=== PATIENT | male | born 1990 | race African-American/Black ===

== ENCOUNTER 2019-08-24 09:24 | Emergency (ER) | payer OTHER, SELFPAY ==
[2019-08-24 09:25] VITALS: BP 132/73; PULSE 86; RESP 14; TEMP 37.4; O2SAT 100; BMI 23.6
--- NOTE | 2019-08-24 09:50 | ED.VISSUMM ---
- ER Visit Summary Date of Service: 08/24/19 Chief Complaint: Abscess and pinkeye History of Present Illness: The patient is a [address] Patel. He reports that he has a swollen painful area on his left eye that began 2 days ago. Reports a sharp pain is 10-10 with walking or touching it. Is it a 10 respirators not taken anything for pain. Denies any constitutional symptoms. No fever, chills, nausea, or vomiting. Patient reports that 2 days ago he woke up and his left eye was red and matted shut. He was seen in urgent care and was placed on polymyxin drops and that this is improving. However, he reports that he wants a second opinion. Physical Examination: Vitals: Stable. Afebrile. General: Well-nourished and well-developed. Head: Normocephalic atraumatic. Eyes: Mild conjunctival injection on the left. Extraocular motions are intact without pain. There is no matting at this time. Neck: Supple, no lymphadenopathy. No JVD. Nontender. Cardiovascular: Regular rate and rhythm. No murmurs. Respiratory: No respiratory distress. Clear to auscultation bilaterally. Abdominal: Soft, nontender, nondistended, normal bowel sounds. No guarding, rebound, or peritoneal signs. Back: Nontender. Extremities: Lateral left thigh there is a 2 cm indurated area with no appreciable fluctuance. There is spontaneous drainage of purulent material from this., no edema. Skin: Normal color, no rash. Neurologic: Alert and oriented ?3. Cranial nerves II through XII are intact. Normal strength and sensation. Psych: Normal affect. Emergency Department Course and Treatment: I had a prolonged discussion with the patient about treatment options. At this time with it draining spontaneously I do not know that there is much to be gained from an incision and drainage. He does not want this done if he can avoid it. He was given doxycycline and a dressing was placed. Treatment Plan: Patient will be discharged with doxycycline, Bactroban, naproxen, and 10 [place]. Instructed to follow-up with Dr. Patel or return to emergency department in 2 days if this is not improving. He does understand that he may require an incision and drainage at that time. Disposition: To home in improved and stable condition. Impression: 1. Abscess left leg with spontaneous drainage. 2. Conjunctivitis on left. This note was generated with Pythian dictation software. It may contain incorrect words, spelling, and punctuation that were not noted in review of the chart prior to signing ED Disposition - Plan for ED Patient: Instructions: ABSCESS, Antiobiotic Treatment Only Prescriptions: Mupirocin [Bactroban] 1 applic TOPICAL TID #1 tube Prescription Printed Doxycycline 100 mg PO BID #20 cap Prescription Printed Naproxen [Naprosyn] 500 mg PO BID #14 tab Prescription Printed Hydrocodone Bitart/Apap 5-325 [[place] 5MG-325MG] 1 tab PO Q4H PRN PRN 2 Days #10 tab PRN Reason: Pain Prescription Printed Referrals: Main Patel DO [Primary Care Provider] - 2 Days for wound check
[2019-08-24] MEDS: HYDROcodone Bitartrate/Apap 5/325 Tablet PO (10:03)
[2019-08-24] MEDS: Doxycycline 100 MG CAPSULE PO (10:03)
[2019-08-24] MEDS: Naproxen 250 MG Tablet 500 MG PO (10:03)
== END 2019-08-24 10:10 | disposition home or self-care (01) ==
LOC: ED 10:07
PROVIDERS: Emergency Provider Emergency Medicine; PCP Family Medicine
DX: L02.416 Cutaneous abscess of left lower limb (principal); H10.9 Unspecified conjunctivitis; J45.909 Unspecified asthma, uncomplicated; F17.200 Nicotine dependence, unspecified, uncomplicated
CPT/HCPCS: 99283

== ENCOUNTER 2021-08-22 19:14 | Emergency (ER) | payer OTHER, SELFPAY ==
[2021-08-22 19:15] VITALS: BP 128/63; PULSE 85; RESP 18; TEMP 36.2; O2SAT 96; BMI 23.5
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
--- NOTE | 2021-08-22 19:30 | RAD_ITS ---
STUDY: X-RAY CHEST REASON FOR EXAM: Male, 31 years old. CHEST PAIN rib pain TECHNIQUE: XR Chest 2 Views COMPARISON: None FINDINGS: There is no demonstrated pleural abnormality. Normal size heart. Normal mediastinum and violeta. Normal visualized pulmonary arteries. Normal visualized aortic arch and descending thoracic aorta. Normal visualized thoracic spine. Normal visualized ribs, clavicles, and shoulders. There is no demonstrated abnormality of the visualized soft tissue structures of the upper abdomen. RAD/Chest PA and Lateral IMPRESSION: There are no acute findings. Electronically Signed: Ric Taylor MD at 20:07 EST Reading Location ID and State: [facility] / [place] , Service support ,
[2021-08-22 20:22] VITALS: BP 129/78; PULSE 88; RESP 14; TEMP 36.9; O2SAT 98
== END 2021-08-22 20:22 | disposition home or self-care (01) ==
PROVIDERS: Emergency Provider Physician Assistant; Visit Provider Physician Assistant
DX: R07.81 Pleurodynia (principal); M54.50 Low back pain, unspecified; F17.290 Nicotine dependence, other tobacco product, uncomplicated; V89.2XXA Person injured in unspecified motor-vehicle accident, traffic, initial encounter; Y93.9 Activity, unspecified; Y92.9 Unspecified place or not applicable
CPT/HCPCS: 71046; 99282

== ENCOUNTER 2021-11-07 16:57 | Emergency (ER) | payer OTHER, SELFPAY ==
[2021-11-07 16:59] VITALS: BP 132/72; PULSE 62; RESP 15; TEMP 37; O2SAT 100
--- NOTE | 2021-11-07 17:47 | EX.ED.DYSGE1 ---
HPI History of Present Illness Chief Complaint: Suicidal Informant: patient Narrative Narrative: 31-year-old male presenting to the emergency department with depression. Patient states that he has been dealing with depression for the past 4 to 5 years. He was placed on medication about a year ago but only took for 3 to 4 weeks. He states that he has been seeing a counselor. This past week he states is been hard for him. He has some upcoming legal issues. He has been working 12-hour shifts at work. He states he does have a good support network with family and friends. Because he had some suicidal thoughts he made an appointment with his therapist. They contacted his doctor to see if they can start restart him on his medication. They recommended that he come to emergency for eval. Patient states that he is not actively suicidal or homicidal. PFSH PFSH Home Medications doxycycline monohydrate 100 mg PO BID #20 cap 08/24/19 [Rx Last Taken Unknown] mupirocin 1 applic TOPICAL TID #1 tube 08/24/19 [Rx Last Taken Unknown] naproxen 500 mg PO BID #14 tab 08/24/19 [Rx Last Taken Unknown] cyclobenzaprine 10 mg PO TID PRN #15 tablet 08/22/21 [Rx Last Taken Unknown] ibuprofen 800 mg PO Q8H #20 tab 08/22/21 [Rx Last Taken Unknown] Allergy/AdvReac Type Severity Reaction Status Date / Time No Known Allergies Allergy Verified 08/22/21 19:18 Social History (Updated 11/07/21 @ 17:[address] Cecil Craft, DO) Smoking Status: Current some day smoker tobacco type: cigars substance use type: does not use ROS ROS ED Constitutional Constitutional ED: Denies chills, fever(s) or weight loss Eyes Eyes: Denies change in vision or diplopia ENT ENT ED: Denies ear pain, rhinorrhea or sore throat Cardiovascular Cardiovascular: Denies chest pain, orthopnea, palpitations or racing heartbeat Respiratory/Chest Respiratory/Chest: Denies cough, dyspnea or orthopnea Gastrointestinal Gastrointestinal: Denies abdominal pain, diarrhea, nausea or vomiting Genitourinary Genitourinary ED: Denies dysuria, hematuria or urinary frequency Musculoskeletal Musculoskeletal: Denies arthralgias or myalgias Integumentary Denies abscess or rash Neurologic Neurologic: Denies headache(s) or weakness Psychiatric Psychiatric: Reports depression and suicidal thoughts; Denies anxiety or suicidal ideation Endocrine Endocrinology: Denies polydipsia, polyphagia or polyuria Allergic/Immunologic Allergic/Immunologic ED: Denies mouth swelling, tongue swelling or urticaria EXAM Physical Exam Const Vital Signs: 11/07/21 16:59 Temperature 98.6 F Temperature Source Temporal Pulse Rate 62 Respiratory Rate 15 Blood Pressure 132/72 H Blood Pressure Mean 92 Pulse Ox 100 Oxygen Delivery Method Room Air Positive well nourished and well developed General Appearance ED: well developed HEENT Reports normocephalic, head/scalp atraumatic, TM's clear and moist mucous membranes Negative for trauma Tympanic Membrane ED: Yes TM's clear Eyes PERRL and EOMs intact bilaterally Neck no lymphadenopathy, supple and no JVD Resp normal respiratory effort and clear to auscultation bilaterally Cardio regular rate, regular rhythm and no murmurs GI normal to inspection, nondistended, normoactive bowel sounds and non-tender Palpation: soft Back/Spine no CVA tenderness and normal ROM Extremity normal to inspection General Extremety ED: Negative for edema General Extremity: Negative for edema Neuro oriented x3 and CN's II-XII intact bilaterally Sensorium / Orientation: alert Motor Exam: strength 5/5 throughout Psych Psych Narrative: Patient does make eye contact. He speaks reserved. He demonstrates forward thinking. He denies suicidal or homicidal ideation. Mood & Affect: depressed; Negative for tearful Skin no rashes or lesions noted and no wounds MDM MDM MDM Narrative Medical decision making narrative: Patient was assessed by case management and myself. We do not feel that he is actively suicidal and that his depression does not rise to the level of requiring a pink slip. Patient does show interest in the partial hospitalization program. Patient will follow-up with his doctors return if worsening or concerns Discharge Plan Triage Chief Complaint: Suicidal ED Provider: Cecil Craft Dx/Rx/DC Orders Instructions: ED Depression Prescriptions: No Action doxycycline monohydrate 100 MG capsule 100 mg PO BID Qty: 20 RF: 0 mupirocin 1 APPLIC ointment 1 applic topical TID Qty: 1 RF: 0 naproxen 500 MG tablet 500 mg PO BID Qty: 14 RF: 0 ibuprofen 800 mg tablet 800 mg PO Q8H Qty: 20 RF: 0 cyclobenzaprine 10 mg tablet 10 mg PO TID PRN (Reason: Muscle Spasm) Qty: 15 RF: 0 Primary Care Provider: Mark Marcus Referrals: Care Physician,No Primary [NON-STAFF] - Activity Restrictions/Additional Instructions: Please follow-up with your doctors as scheduled Disposition Disposition: Home, Self Care
[2021-11-07 18:27] VITALS: RESP 16
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
== END 2021-11-07 18:27 | disposition home or self-care (01) ==
LOC: ED 18:10
PROVIDERS: Emergency Provider Emergency Medicine; PCP Family Medicine; Visit Provider Emergency Medicine
DX: F32.A Depression, unspecified (principal); F17.290 Nicotine dependence, other tobacco product, uncomplicated; R45.851 Suicidal ideations; Z79.899 Other long term (current) drug therapy
CPT/HCPCS: 99284

== ENCOUNTER 2021-12-09 08:00 | Outpatient (RCR) | payer OTHER, SELFPAY ==
--- NOTE | 2021-12-09 09:56 | BH.COMM ---
Communication Note - Communication with Client Communication Note: Pt completed initial paperwork and completed the [place] Suicide Screening. Pt screens at low risk. Pt admits to having fleeting SI with thoughts of cutting himself with a razor within the last month, but he denied any intent. Pt denies intent ever and denies any history of suicide attempts. No SI or thoughts of today. No access to weapons. Case discussed with Dr. Berkowitz with verbal order to admit to IOP with dx of MDD(F33.2).
--- NOTE | 2021-12-09 10:10 | BH.SGPN.GN ---
Behaviors/Verbalizations/Mental Status: []Eye contact is good. Motor activity is appropriate. Appearance is casual and grooming tended to. Speech is Appropriate. Mood is anxious and dysthymic. Affect is congruent. Thoughts are linear and logical. No evidence of psychosis Client Response/Progress/Benefit: []Pt receptive of session, actively engaged throughout AEB taking notes and providing input and examples to discussion. Appeared to connect with group topic of cognitive distortions and the impact of thought patterns on mental health, coping behaviors, and relationships. Reflected that pt personally tends to struggle with distortions of fortune telling, mind-reading, and disqualifying the positives. Pt reports his thoughts when he wakes up often dictate how his day will go, which can lead to anger or avoidance. Pt appeared to benefit from gaining insight on distorted thinking patterns and how this impacts overall mental health. Will continue IOP tx to prevent decompensation, improve daily functioning, and gain healthy emotional regulation skills. Narrative Note: []
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
--- NOTE | 2021-12-11 10:13 | BH.SGPN.GN ---
Behaviors/Verbalizations/Mental Status: []Eye contact is good. Motor activity is appropriate. Appearance is casual. Speech is Appropriate. Mood is depressed and anxious. Affect is congruent. Thoughts are linear and logical. No evidence of psychosis. Client Response/Progress/Benefit: []Pt connected with topic of Anxiety and participated throughout, providing input and examples. Attentive during psychoeducation on different anxiety disorders and participated throughout interactive discussion defining anxiety and identifying cognitive and physiological symptoms of anxiety. Pt stated ?I can relate to avoidance with anxiety?. Common cognitive symptoms identified by group included: ?what if thoughts?, ?fear of failure?, and predicting the future type thoughts. Physiological symptoms reported by patient included: ?if I don?t cry then I get really irritable?, goose bumps, and restlessness. Benefited from increased awareness and insight on anxiety and its impact. Plan is to continue in IOP to improve mood stability, increase consistency of healthy coping, and prevent decompensation. Narrative Note: []
[2021-12-11 10:26] VITALS: BP 128/84; PULSE 65
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
--- NOTE | 2021-12-11 12:17 | BH.DR.ITP ---
Initial Treatment Plan Patient Information Visit Information: ADMISSION DATE: EXPECTED LOS: 4-6 weeks Problems/Symptoms Problem #1:: Depression Symptom:: Had an, decreased motivation, anhedonia, hopelessness, guilt, biological disruption of appetite, recent passive thoughts of and recent passive, fleeting suicidal ideation Problem #2:: Anxiety Symptom:: Worry, ruminations, panic attacks
--- NOTE | 2021-12-12 09:00 | BH.SGPN.GN ---
Behaviors/Verbalizations/Mental Status: []Pt alert and oriented, casually dressed and groomed. Eye contact good. Motor activity appropriate. Speech within normal limits. Affect congruent, mood agitated and irritable. Thoughts linear, logical, no signs of hallucinations or delusions. Reviewed pt?s symptom tracker, no risk for suicidal ideation, plan, or intent as of 12/12/21 Client Response/Progress/Benefit: []Pt responded well to session, offering supportive feedback. Pt reports feeling stressed this morning as pt did not get good sleep last night and he does not have a chance to rest today until the evening after work. Pt shared he used healthy coping skills yesterday through using opposite action to go for a walk when he was anxious. Pt reported this helped pt not have a panic attack. Pt also used opposite action this morning as pt wanted to cancel IOP and call off work, but I knew that would only make me feel worse. Pt appeared to benefit from group feedback and reflecting on his use of skills. Will continue IOP tx to prevent decompensation, gain healthy coping skills, and improve mood stability. Narrative Note: []
--- NOTE | 2021-12-13 10:15 | BH.SGPN.GN ---
Behaviors/Verbalizations/Mental Status: []Pt alert and oriented, casually dressed and groomed. Eye contact good. Motor activity appropriate. Speech within normal limits. Affect congruent, mood euthymic. Thoughts linear, logical, no signs of hallucinations or delusions Client Response/Progress/Benefit: []Pt responded well to session AEB sharing and listening attentively to others. pt was engaged throughout group discussion defining fixed mindset and what it can look like. Group discussed how fixed mindset affects mental health and why we use fixed thoughts. Pt participated in experiential activity encouraging pts to find solutions to a seemingly impossible task. Pt connected with the examples of fixed thoughts given by peers. Pt shared for him fixed thinking can lead to ?putting all your eggs in one basket.? Pt appeared to benefit from increased knowledge of fixed mindset and self-awareness of personal fixed thoughts. Will continue IOP tx to prevent decompensation, gain healthy coping skills, and improve overall functioning. Narrative Note: []
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
--- NOTE | 2021-12-13 14:35 | BH.MTP_ITS ---
Master Treatment Plan - Patient Information Program Physician:: Nuris Berkowitz Primary Therapist:: Cesar Kenny - Psychiatric Diagnoses Psychiatric Diagnoses:: 1. Major depressive disorder, recurrent, severe without psychosis. 2. Generalized anxiety disorder. 3. History of methamphetamine use disorder (sober x5 years). 4. History of cocaine use disorder (sober x18 months). 5. Marijuana use disorder Diagnosis Code(s):: F33.2 - Estimated LOS Estimated LOS (in weeks):: 6 Problem/Goal #1 - Problem/Goal #1 Stated Goal:: Client will reduce depression, hopelessness, anhedonia, and fleeting suicidal thoughts due to Major Depressive Disorder through [facility] AEB by reduction on depression and suicidal ideation domains on the DSM-5 cross cutting scales. Description of Barriers: Legal issues, financial stressors, conflict with support, psychosocial stressors, hx of trauma. Functional Impact: Recently presented to [facility] ER for suicidal ideations, depression was interfering with social, familial, and work responsibilities. Isolation. Avoidance. Goal Relevant Strengths/Supports: motivated, hard-working, awareness of impact of mental health on functioning. Kids are primary support. - Objectives Objective #1 Stated Objective: Client will identify and replace 2-3 cognitive distortions that reinforce depressive symptoms, negative self-talk, and suicidal thoughts. Interventions: Through individual and group counseling will help client identify distorted, negative beliefs about self and replace with more realistic, affirmative messages. Therapist will use CBT to help client increase insight to the connection between thoughts, emotions, and behaviors. Therapist will encourage client to practice thought challenging. Discharge Criteria: Able to identify 2-3 common cognitive distortions and be able to implement strategies to minimize their impact. Target Date: 01/22/22 Review Date: 01/08/22 Objective #2 Stated Objective: Client will identify 2 triggers and 2 coping skills to use in increased times of depression and suicidal ideation. Interventions: Through individual and group counseling will teach client various coping skills to manage symptoms and give tangible resources to use to regulate emotions. Therapist will use cognitive restructuring techniques and help client gain awareness of negative thoughts that reinforce depressive cycles. Discharge Criteria: Being able to identify 2 triggers to depression and 2 ways to effectively cope with depressive thoughts. Target Date: 01/22/22 Review Date: 01/08/22 Problem/Goal #2 - Problem/Goal #2 Stated Goal:: Learn and implement coping skills that result in a reduction of anxiety and worry, and improved daily functioning AEB reduction of scores on the anxiety domain of the DSM-5 cross cutting scales. Description of Barriers: Legal issues, financial stressors, conflict with support, psychosocial stressors, hx of trauma. Functional Impact: When overwhelmed with anxiety pt often isolates or avoids others which impacts functioning at work and home. Anxiety and worry about the future also lead to increased irritability and anger outbursts. Goal Relevant Strengths/Supports: motivated, hard-working, awareness of impact of mental health on functioning. Kids are primary support. - Objectives Objective #1 Stated Objective: Client will learn and implement 2-3 calming skills to reduce overall anxiety and manage anxiety. Interventions: Through individual and group counseling will teach the client calming/relaxation skills (e.g., muscle relaxation, mindful breathing) and how to discriminate better between relaxation and tension; teach the client how to apply these skills to his/her daily life. Discharge Criteria: Able to identify at least 3 calming skills and use consistently. Target Date: 01/22/22 Review Date: 01/08/22 Objective #2 Stated Objective: Client will identify 2-3 intrusive/ruminating thoughts and learn 2-3 strategies to overcome, replace, or reduce the value of those thoughts. Interventions: Through individual and group counseling will encourage client to focus on stressors in their control and teach client distress tolerance techniques. Will also provided education and awareness of strategies to decrease ruminations and intrusive anxious thoughts. Target Date: 01/22/22 Review Date: 01/08/22
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
--- NOTE | 2021-12-14 09:00 | BH.SGPN.GN ---
Behaviors/Verbalizations/Mental Status: [] Eye contact is good. Motor activity is appropriate. Appearance is casual. Speech is Appropriate. Mood is depressed. Affect is flat. Thoughts are linear and logical. No evidence of psychosis. Reviewed daily check in sheet and no reports of suicidal ideations or intent. Client Response/Progress/Benefit: [] Pt was an active participant in group discussion. Attentive. Emotion for today is stressed. Reports that he received bad news regarding his daughter (medical issues) which he has had a hard time getting out of my head. Ruminating and fearful about her future. This led to increased feelings of anger and avoidance of his support. He is also ruminating on letting his co-workers down by coming to this program to get help. Group was able to reframe and challenge his negative automatic thoughts. One group member shared a personal story about her and her brother overcoming the same medical issue that his daughter is facing, which was beneficial. Pt did report utilizing opposite action over yesterday as he went to the park with his kids/GF. Glad he did this as we had a good time. Limited progress noted per pt. Benefited from group support, encouragement, and feedback. Will continue in IOP to prevent decompensation, increase healthy coping, and improve functioning. Narrative Note: []
--- NOTE | 2021-12-16 09:00 | BH.SGPN.GN ---
Behaviors/Verbalizations/Mental Status: []Pt alert and oriented, casually dressed and groomed. Eye contact good. Motor activity appropriate. Speech within normal limits. Affect congruent, mood euthymic. Thoughts linear, logical, no signs of hallucinations or delusions. Reviewed pt?s symptom tracker, no risk for suicidal ideation, plan, or intent as of 12/16/21 Client Response/Progress/Benefit: [] Pt responded well to session, contributing and engaged. Pt reports feeling content this morning as pt got time with positive supports over the weekend and did not isolate. However, pt got food poisoning which was painful and highly stressful, but pt feels better now. Pt shared this week he plans to practice more social self-care by going to the movies and the gym. Pt shared I always say I'm going to the gym, but I really want to. Group normalized barriers to accomplishing goals and gave pt ideas to overcome barriers. Pt will continue IOP tx to increase distress tolerance skills, improve mood stability, and reduce negative thinking. Narrative Note: []
--- NOTE | 2021-12-16 10:00 | BH.SGPN.GN ---
Behaviors/Verbalizations/Mental Status: [] Eye contact is good. Motor activity is appropriate. Appearance is casual. Speech is Appropriate. Mood is depressed. Affect is flat. Thoughts are linear and logical. No evidence of psychosis. Client Response/Progress/Benefit: [] Pt was an active participant during interactive group discussions. Attentive during psychoeducation on the six types of boundaries (physical, emotional, intellectual, sexual, time, and material) AEB note-taking. Along with peers contributed to interactive discussion on defining what a boundary is in mental health. Pt along with peers identified challenges to setting boundaries which included; fear of other's response, guilt, fear of rejection, fear of disappointing the other person, feeling like one is unworthy to set boundaries, etc. Pt along with peers identified the benefits to setting boundaries such as increased control, decreased stress, increased time for self-care, and increased confidence. Group discussed the mental health benefits to establishing boundaries at work, school, and home. Pt benefited from increased awareness and insight on the importance/benefit to setting health boundaries. Will continue in IOP to prevent decompensation, increase health coping, and improve functioning. Narrative Note: []
--- NOTE | 2021-12-16 11:05 | BH.SGPN.GN ---
Behaviors/Verbalizations/Mental Status: []Client alert and oriented, casually dressed and appropriately groomed. Eye contact good. Motor activity WNL.? Speech within normal limits. Affect congruent, mood anxious and depressed. Thoughts linear and intact. no signs of delusions or hallucinations. Client Response/Progress/Benefit: []Client responded well to session AEB listening attentively to peers, providing some input and examples, as well as taking notes throughout. Client contributed throughout psychoeducation on different boundary setting styles. Reports connecting most with porous style of boundary setting when it comes to strangers and rigid with friends and family, identifying fear of being hurt as why he struggles with ?not letting in those close to me?. Participated in small group discussion brainstorming various strategies for improving healthy boundary setting. Client reports wanting to begin using skill of practicing more regular and honest communication with his supports to improve overall ability to establish and maintain healthy boundaries. Seemed to benefit from increased awareness of how different boundary styles can impact mental health. Will continue IOP tx to increase consistent application of skills, increase self-care and anxiety management, and prevent decompensation. Narrative Note: []
--- NOTE | 2021-12-18 10:10 | BH.SGPN.GN ---
Behaviors/Verbalizations/Mental Status: []Pt alert and oriented, neatly dressed and groomed. Eye contact good. Motor activity appropriate. Speech within normal limits. Affect congruent, mood euthymic. Thoughts linear, logical, no signs of hallucinations or delusions. Client Response/Progress/Benefit: []Pt engaged during session AEB Pt contributing thoughts throughout discussion and completing worksheet. Connected with discussion on crisis and how coping with external crises by using unhealthy coping skills could result in a personal crisis. Group reflected on the importance of having awareness of personal warning signs to prevent reaching crisis point. Group identified potential warning signs for crisis and Pt completed the personal warning signs worksheet. Pt identified personal crisis warning signs to include: checking out of situations, apathy, and pacing. Pt benefited by increasing awareness of what leads to crisis and personal warning signs. Pt will continue IOP tx to promote mood stability, increase healthy emotional regulation skills, and improve daily functioning. Narrative Note: []
--- NOTE | 2021-12-18 10:26 | BH.MDN ---
Multi-Disciplinary Note - Note 60-min Individual Time Started:: 09:05 Date: 12/18/21 Purpose of session/treatment goals addressed:: Reviewed progress and current symptoms. Addressed treatment plan goals 1 and 2. Eye Contact:: Good Motor Activity:: Appropriate Appearance:: Disheveled Speech:: Appropriate Mood:: Irritable, Depressed Affect:: Congruent Thoughts:: Linear, Logical, No evidence of hallucinations/delusions noted Staff Interventions:: psychoeducation on: - CBT, COGNITIVE DISTORTIONS., CBT techniques Client Response:: Pt reports I woke up in a bad mood this morning. Originally reported no trigger to mood, however after talking it appears to have been related to poor sleep and verbal argument with live-in ex gf. Pt is currently living with the mother of two of his children (2, 2 months) depsite them not being together as a couple. Pt reports feeling trapped b/c if he leaves and lives on his own his ex will move out of state and he will not have access to his children. They have very different styles of parenting and communicating. Overall they struggle to get along. Pt states I just have to deal with it. The issue last night involved him sleeping on the couch which upset ex. He verbalized valid reasons while sleeping apart is beneficial for him , ex, and the children and he plans to communicate this assertively today. He often simply complies with her requests to avoid conflict however it appears to be causing more in the long-run as he holds resentments. His primary coping skills to to be alone or avoid others. When he is alone he struggles to utilize skills to work through, process, or reframe negative thoughts therefore ruminates the whole time. We talked about ways to cope and identify negative thoughts and incorporate strategies. Risks/Concerns:: no risks or concerns noted. Progress Toward Goals/Plan:: Pt presented today depressed and irritable. Showed insight into triggers. Provided education on the connection between events, thoughts, emotions, and behaviors. Also provided education on cognitive distortions. Pt's main coping skill is to be alone, however when alone is not incorporating any calm or coping strategies to process the original event which is leading to ruminating for several hours. I'm just in my head all day. Plan is for him to familiarize himself with cognitive distortions and to identify when he does these. We are working towards a thought record to help education on reframing, challenging, and processing negative automatic thoughts. Obstacle to progress is his living situation which he feels trapped. Time Stopped:: 10:00
--- NOTE | 2021-12-20 09:05 | BH.SGPN.GN ---
Behaviors/Verbalizations/Mental Status: [] Eye contact is good. Motor activity is appropriate. Appearance is casual. Speech is Appropriate. Mood is euthymic. Affect is full. Thoughts are linear and logical. No evidence of psychosis. Reviewed daily check in sheet and no reports of suicidal ideations or intent. Client Response/Progress/Benefit: [] Pt was an active participant in group discussion. Attentive. Provided appropriate feedback. Daily symptom tracks notes 1/5 for depression and anxiety and 3/5 for anger. Emotion for today is anxious. States that he has felt like he was going through the motions this week, however is looking forward to the weekend. He talked mainly about his weekend plans and how this will be beneficial for him emotionally. Progress noted. Benefited from group support, encouragement, and feedback. Will continue in IOP to prevent decompensation, increase healthy coping, and improve functioning. Narrative Note: []
--- NOTE | 2021-12-20 10:10 | BH.SGPN.GN ---
Behaviors/Verbalizations/Mental Status: [] Eye contact is good. Motor activity is appropriate. Appearance is casual. Speech is Appropriate. Mood is euthymic. Affect is full. Thoughts are linear and logical. No evidence of psychosis Client Response/Progress/Benefit: [] Pt was an active participant in group discussions and experiential activity. Attentive during psychoeducation. Group had an interactive discussion in which they provided insight on the definition of a pitfall which was things that we engage in that keep us stuck and away from a healthier path. Group identified types of pitfalls in mental health such as isolation, not asking for help, avoiding, not taking medications, avoiding responsibilities, not setting boundaries, and self-sabotage. Pt played an active role in the experiential activity and was able to make connections between the activity and today's topic. Benefited from increased insight on pitfalls and how they can impact mental health. Will continue in IOP to prevent decompensation, increase healthy coping, and improve functioning. Narrative Note: []
--- NOTE | 2021-12-20 11:10 | BH.SGPN.GN ---
Behaviors/Verbalizations/Mental Status: []Pt alert and oriented, casually dressed and groomed. Eye contact good. Motor activity appropriate. Speech within normal limits. Affect congruent, mood anxious and euthymic. Thoughts linear, logical, no signs of hallucinations or delusions. Client Response/Progress/Benefit: []Pt receptive of session, engaged throughout AEB pt actively listening and contributing to discussion, as well as taking notes.? Pt completed worksheet identifying personal pitfalls impacting mental health progress. Pt identified the following pitfalls: negative thoughts, self-doubt, looking for a way around/out, tunnel vision, and lack of trust. Group worked together to identify different coping skills to help manage pitfalls. Pt selected the following coping skills to help with pitfalls: thought challenging, building his self-confidence, viewing mistakes as learning experiences, slowing down, and taking breaks. Pt wants to work on managing pitfalls by setting small goals focused on slowing down, takes breaks, and practicing emotion regulation skills. Benefited from identifying personal pitfalls and strategies to overcome these pitfalls. Will continue IOP tx to reduce unhealthy coping behaviors, improve mood stability, and increase confidence. Narrative Note: []
--- NOTE | 2021-12-23 09:03 | BH.SGPN.GN ---
Behaviors/Verbalizations/Mental Status: []Pt alert and oriented, casually dressed and groomed. Eye contact fair. Motor activity appropriate. Speech within normal limits. Affect flat, mood depressed. Thoughts linear, logical, no signs of hallucinations or delusions. Reviewed pt?s symptom tracker, no risk for suicidal ideation, plan, or intent. Client Response/Progress/Benefit: []Pt responded well to session, providing supportive feedback. Pt stated he is struggling today because on Thursday evening his ex-girlfriend that has been living with him took their two children and left the house because pt told her he still didn't want to pursue a romantic relationship with her. Pt reported he does not know where his children are because she will not tell him where she is staying. Pt stated a mental health positive is he was able to manage his anger in an appropriate way and stopped himself from doing something that would've gotten him in trouble. Additional positive as getting to see his other daughters for fathers day. Pt stated having a hard time processing this situation and feeling extremely frustrated. Pt appeared to benefit from support from peers. Pt to continue IOP to increase use of healthy coping, challenge negative thinking, and prevent decompensation.
--- NOTE | 2021-12-23 12:20 | BH.MDN ---
Multi-Disciplinary Note - Note 60-min Individual Time Started:: 11:05 Date: 12/23/21 Purpose of session/treatment goals addressed:: Pt noted to be distracted and disengaged in group due to psychosocial stressors. Thought it best to meet with pt individually to process and problem-solve. Eye Contact:: Poor Motor Activity:: Appropriate Appearance:: Disheveled Mood:: Depressed Affect:: Flat Thoughts:: Linear, Logical, No evidence of hallucinations/delusions noted Staff Interventions:: CBT techniques, mindfulness skills Client Response:: Pt presents today tearful. According to patient on Thursday evening his live-in ex GF was pressuring him to resume their romantic relationship, which they agreed to end 2 months ago. Pt continued to decline. According to pt his GF got upset and starting packing and then left with their 2 kids. The GF has had the children since then and refuses to disclose where the kids are located or where she is living. Pt did meet with his kids yesterday (Father's Day) for a couple hours at a neutral space. Limited communication with ex on future plans but pt suspects that if he doesn't agree to resume the relationship with ex GF she will take the kids. He feels trapped and manipulated however reports strong connection with his children and doesn't want to be away from them. According to pt because we aren't I only have visitation rights and is fearful that ex will move out of state again feeling trapped. He spent most of the weekend with friends and his other children (2 kids with another woman). He attended a BBQ however reports all I want to do is sleep. Primary coping is sleeping to escape ruminations. Was open to discussion on this being a crisis and overwhelming event and the need to implement strategies to focus moment to moment. Able to identify some distraction skills, support to talk with, and calming strategies. Able to identity affirmations such as this is temporary Risks/Concerns:: Denies SI, plan, or intent. Denies HI. Progress Toward Goals/Plan:: Regression due to recent events. Currently living alone and has no access to kids (doesn't even know where they are located). Feels emotionally manipulated by ex GF. Despite this he was able to utilize skills over the weekend such as distraction, opposite action, and relying on support. He spent time with friends, attended a BBQ, and is applying skill to minimize distress which shows significant resiliency. Urges to isolation from others and sleep (to escape thoughts) however was able to identify strategies and supports to be around this evening. We discussed emotions with feeling powerless and acceptance of current limitations. Plan is to continue in IOP level of care. It will be challenging to learn and implement new coping skills while he is entrenched in acute psychosocial stressors, however IOP can provide support and encouragement of skills to minimize distress and avoid decompensation, Time Stopped:: 12:00
--- NOTE | 2021-12-26 09:00 | BH.SGPN.GN ---
Behaviors/Verbalizations/Mental Status: []Pt alert and oriented, casually dressed and groomed. Eye contact good. Motor activity appropriate. Speech within normal limits. Affect congruent, mood euthymic. Thoughts linear, logical, no signs of hallucinations or delusions. Reviewed pt?s symptom tracker, no risk for suicidal ideation, plan, or intent as of 12/26/21 Client Response/Progress/Benefit: []Pt responded well to session, attentive and providing supportive feedback. Pt reports feeling happy this morning as pt shared he was able to turn his shitty day around and prevent himself from a depressive spiral. Pt spent time with friends and used opposite action. Pt also got to see his two youngest children and the issues with the mother of these children have slightly resolved. Pt denies any stressors today as pt feels positive about many things. Pt appeared to benefit from reflecting on his use of coping skills. Pt will continue IOP tx as pt can improve emotional regulation skills, reduce negative thinking, and further improve mood stability. Narrative Note: []
--- NOTE | 2021-12-27 09:05 | BH.SGPN.GN ---
Behaviors/Verbalizations/Mental Status: [] Eye contact is good. Motor activity is appropriate. Appearance is casual. Speech is Appropriate. Mood is irritable. Affect is flat. Thoughts are linear and logical. No evidence of psychosis. Reviewed daily check in sheet and no reports of suicidal ideations or intent. Client Response/Progress/Benefit: [] Pt was an active participant in group discussion. Attentive. Provided appropriate feedback. Emotion for today is tired. Daily symptom tracker notes 08/10 for anger. Mental health wins was I kept my anger in check . Shared a that his neighbors above him had a democrat last evening which impacted his sleep. Notes that he was irritable, however was able to manage his anger. I wanted to go up and pound on the door but I knew that might lead to an argument. Able to reframe thoughts and calm self utilizing skills. Proud of himself for making healthy decisions and avoiding situations where things can go bad quickly. Stressor continues is being from his two children. Since decompensation earlier this week he has been trying to be mindful and not catastrophize. Communication with his ex has also improved. Managed through the crisis events and is starting to become more hopeful. Progress noted per pt report. Benefited from group support, encouragement, and feedback. Will continue in IOP to prevent decompensation, maintain safety, and improve daily functioning. Narrative Note: []
--- NOTE | 2021-12-27 10:10 | BH.SGPN.GN ---
Behaviors/Verbalizations/Mental Status: []Pt alert and oriented, casually dressed and groomed. Eye contact good. Motor activity appropriate. Speech within normal limits. Affect congruent, mood euthymic. Thoughts linear, logical, no signs of hallucinations or delusions. Client Response/Progress/Benefit: []Pt responded well to session AEB pt listening attentively to others and taking notes. Pt was engaged throughout discussion introducing the topic of self-care and its importance. Group identified myths about self-care, such as self-care is selfish, takes too much money, takes too much time, has to be fun, and means one thinks they are more important than others. Contributed ideas as group identified self-care benefits to include: improved mood, reduced avoidance, better relationships, and more productivity. Pt gave examples of why self-care is important as a parent even though it feels selfish. Pt appeared to benefit from increased knowledge of the importance and benefits of self-care. Will continue IOP tx to improve emotional regulation skills, reduce negative thinking, and reduce isolation. Narrative Note: []
--- NOTE | 2021-12-27 11:15 | BH.SGPN.GN ---
Behaviors/Verbalizations/Mental Status: []Pt alert and oriented, casually dressed and groomed. Eye contact good. Motor activity appropriate. Speech within normal limits. Affect congruent, mood euthymic. Thoughts linear, logical, no signs of hallucinations or delusions. Client Response/Progress/Benefit: []Pt engaged participant AEB completing self-assessment worksheet and contributing input during discussion. Participated throughout group discussion on the various areas of self-care. Pt completed worksheet which identified current self-care practices and what self-care activities pt wants to start using. Pt selected physical self-care to begin practicing more consistently. Pt plans to do this by exercising and eating more balanced meals. Pt shared exercise has been his goal for multiple sessions now. Appeared to benefit from completing the self-care evaluation and gaining insights into current self-care practices, as well as identifying areas in which she would like to improve upon. Will continue IOP tx to promote emotional regulation skills, reduce negative thinking, and promote gains. Narrative Note: []
--- NOTE | 2021-12-30 09:05 | BH.SGPN.GN ---
Behaviors/Verbalizations/Mental Status: [] Eye contact is good. Motor activity is appropriate. Appearance is casual. Speech is Appropriate. Mood is euthymic. Affect is full. Thoughts are linear and logical. No evidence of psychosis. Reviewed daily check in sheet and no reports of suicidal ideations or intent. Client Response/Progress/Benefit: [] Pt was an active participant in group discussion. Attentive. Daily symptom tracker notes 07/10 for depression. Emotion for today is good. Mental health win for pt is that he continued to make healthy decisions. He was approached by his friends to go out to the bar over the weekend and he declined. Shared that he was tempted b/c alcohol could have brought immediate gratification and emotional released however there are too many consequences. He set boundaries with his friends and did not succumb to peer pressure. He utilized his time over the weekend to rest up. He reports that he was not depressed spending time alone and reported benefits which included stress management. Primary stressor continues to be not having his children around however he does get to visit. Reports being more energetic and engaged this week. Utilizing skills, not acting impulsively, and performing self-care which he is seeing benefits. Progress noted per pt report. Benefited from group support, encouragement, and feedback. Will continue in IOP to maintain safety, prevent decompensation, and increase healthy coping skills. Narrative Note: []
--- NOTE | 2021-12-30 10:10 | BH.SGPN.GN ---
Behaviors/Verbalizations/Mental Status: []Client alert and oriented, casually dressed and groomed. Eye contact good. Motor activity appropriate. Speech within normal limits. Affect congruent, mood euthymic. Thoughts linear, logical, no signs of hallucinations or delusions. Client Response/Progress/Benefit: []Client responded well to session, attentive and providing input throughout. Participated in discussion of things that can keep people feeling trapped or stuck in life including; avoidance, unhealthy coping, and isolation. Shared connecting with avoidance. Group discussed the connection between thoughts, emotions, and behaviors as well as how negative thinking can keep a person stuck. Client attentive during psychoeducation on maintenance cycles. Client able to identify negative thoughts that have kept client stuck which included never done this before and don't want to get hurt/ Appeared to benefit from gaining awareness of how negative thoughts reinforce mental health symptoms and keep people stuck. Will continue IOP tx to prevent decompensation, increase anxiety management skills, and continue to combat distortions tp improve overall functioning.
--- NOTE | 2021-12-30 11:15 | BH.SGPN.GN ---
Behaviors/Verbalizations/Mental Status: [] Client alert and oriented, casually dressed and groomed. Eye contact good. Motor activity appropriate. Speech within normal limits. Affect congruent, mood euthymic, Thoughts linear, logical, no signs of hallucinations or delusions. Client Response/Progress/Benefit: []Client responded well to session, contributing to discussion and providing supportive feedback. Client identified a negative thought that has kept him stuck. Client's thought was I can't do this. Client reported when he thinks this way, he hates himself and joce lash out. Client worked to reframe the thought by finding more rational, realistic ways to look at the thoughts and then processed within group setting. Client reframed the thought to ?I can at least try to see how it goes? Client stated he will use positive self-talk to continue challenging negative self-talk. Client appeared to benefit from practicing challenging negative thinking. Client will continue IOP tx to promote use of healthy coping skills to improve overall functioning. Narrative Note: []
--- NOTE | 2022-01-01 10:33 | BH.COMM ---
Communication Note - Communication with Client Communication Note: Cancelled today due to illness. He was scheduled to see psychiatry for follow-up
== END 2022-01-02 23:59 ==
LOC: BHIOP 08:00
PROVIDERS: PCP Family Medicine; Referring Provider Psychiatry & Neurology Psychiatry; Visit Provider Psychiatry & Neurology Psychiatry
DX: F33.2 Major depressive disorder, recurrent severe without psychotic features (principal); F41.1 Generalized anxiety disorder; F12.99 Cannabis use, unspecified with unspecified cannabis-induced disorder; Z79.899 Other long term (current) drug therapy; J45.909 Unspecified asthma, uncomplicated
CPT/HCPCS: S9480; 90832; 90837; 90853

== ENCOUNTER 2022-01-03 07:25 | Outpatient (RCR) | payer OTHER, SELFPAY ==
[2022-01-03 00:47] VITALS: BP 128/84; PULSE 65
--- NOTE | 2022-01-03 09:00 | BH.SGPN.GN ---
Behaviors/Verbalizations/Mental Status: [] Eye contact is good. Motor activity is appropriate. Appearance is casual. Speech is Appropriate. Mood is irritable. Affect is congruent. Thoughts are linear and logical. No evidence of psychosis. Reviewed daily check in sheet and no reports of suicidal ideations or intent. Client Response/Progress/Benefit: [] Pt was an active participant in group discussions. Attentive. Provided appropriate feedback. Daily symptom tracker notes 09/07 for irritability. Mental health wins included making a plan for his finances. He states that he began to ruminate on events was able to reframe and change his thoughts. Rather than catastrophizing pt states I've just accepted things. He has accepted events and is developing strategies to address these events. He discussed a stressor which has led to frustration surrounding a family event this weekend and asked for feedback from the group. His goal is to utilize assertive communication while not giving in to appease others. He was open to suggestions and appears motivated to try to suggestions for being assertive. Benefited from group feedback, support, and encouragement. Will continue in IOP to prevent decompensation, maintain gains, and to maintain safety. Narrative Note: []
--- NOTE | 2022-01-03 10:15 | BH.SGPN.GN ---
Behaviors/Verbalizations/Mental Status: []Pt alert and oriented, casually dressed and groomed. Eye contact good. Motor activity appropriate. Speech within normal limits. Affect congruent, mood agitated. Thoughts linear, logical, no signs of hallucinations or delusions. Client Response/Progress/Benefit: []Pt attentive listening to peers, contributing at times, and taking notes during session. Listened as the group brainstormed the positive and negative aspects of stress on physical and mental health. Group did well to identify the benefits of stress as well as the impact of distress on performance and mental health. Pt?s top stressors right now are ignorance, self-procrastination, and consequences from past dumb decisions. Pt shared their ?stress jar? is about 50% full which pt contributes to utilizing his calming coping skills and changes his responses. Pt shared when their 'stress jar' is overflowing, pt gets impulsive, paces, and cries. Pt seemed to benefit from increased self-awareness of current stressors and impact stress has on mental health. Will continue IOP tx to increase emotional regulation skills, improve daily functioning, and further improve mood stability. Narrative Note: []
--- NOTE | 2022-01-03 14:13 | BH.MDN_ITS ---
Multi-Disciplinary Note - Note 60-min Individual Time Started:: 11:00 Date: 01/03/22 Purpose of session/treatment goals addressed:: Reviewed progress and current symptoms. Addressed treatment goals 1 and 2. Reviewed DSM-5 outcomes scores and discussed progress on treatment plan goals. Eye Contact:: Good Motor Activity:: Appropriate Appearance:: Disheveled Speech:: Appropriate Mood:: Anxious Affect:: Congruent Thoughts:: Linear, Logical, No evidence of hallucinations/delusions noted Staff Interventions:: CBT techniques, treatment planning, reviewed DSM-5 Client Response:: Pt presents today reporting conflict with ex-GF regarding upcoming family events. He shared his frustrations in the AM group and reports that he texted her moments after. He shared what he texted and felt that he communicated assertively. Proud of himself for identifying his frustration and then problem-solving, utilizing skills, and reframing thoughts to manage anger rather than isolating, avoiding, or harboring resentments. States I've accepte d certain stressors and realities this week and is working to address them rather than be angry about them or sleep/use drugs to escape stress momentarily. Praised for his effort and utilization of skills. He remains depressed and worried as his ex-gf continues to live away with their children. He has no rights to the children, however does visit 3-4 hours daily. He misses being more active part of their lives and hopes to work out visitation for several days at a time. Realistic that I need to focus take each day as it comes and not worry too much about 3 years from now Risks/Concerns:: no risks or concerns noted. Progress Toward Goals/Plan:: According to DSM-5 crosscutting scales pt has an overall 89% decrease in symptoms since admission. Per outcomes pt has a 80% reduction in the depression domain, 100% reduction in the anger domain (going from 4 to 0), and an 85% reduction in the anxiety domain. Medication compliant. Consistent and engaged in IOP. Pt missed a couple sessions due to work issue and medical issues. He reports increased awareness of his thoughts and emotions, decreased impulsivity, and improved anger mgmt. Notes that his communication has improved as well. Decreased self-medication with alcohol and marijuana I've got better ways to deal with stressors than to escape with drugs or sleep. Despite progress he continues to report depression, worry about the future, and significant psychosocial stressors. He has shown resiliency as he worked through a crisis event while in the program (ex-gf took kids out of house). Progress noted. Will continue in IOP to prevent decompensation, increase healthy coping skills, and maintain safety. Time Stopped:: 12:00
--- NOTE | 2022-01-07 09:05 | BH.SGPN.GN ---
Behaviors/Verbalizations/Mental Status: [] Eye contact is appropriate. Motor activity is appropriate. Appearance is casual. Speech is normal. Mood is euthymic. Affect is full. Thoughts are linear and logical. No evidence of psychosis. Reviewed daily check in sheet and no reports of suicidal ideations or intent. Client Response/Progress/Benefit: [] Pt was an active participant in group discussion. Attentive. Daily symptom tracker notes minimal distress. Mental health win involved a situation in which he used his coping skills. He reports that by utilizing assertive communication skills discussed in last week's group the scheduled events that he had over the weekend went well. He is beginning to see the benefits of assertive communication skills and the importance of communicating while calm and not impulsively. He reports several bad moods over the weekend however was able to reframe thoughts, utilize skills, distract himself, and utilize opposite-action. No longer isolating, avoiding, and ruminating extensively on emotions or events and instead utilizing skills to manage, accept, or cope with stressors.Progress noted per pt report. Benefited from group support, encouragment, and feedback. Will continue in IOP to maintain gains, prevent decompensation, and increase healthy coping skill. Narrative Note: []
--- NOTE | 2022-01-07 10:10 | BH.SGPN.GN ---
Behaviors/Verbalizations/Mental Status: []Client alert and oriented, casually dressed and groomed. Eye contact good. Motor activity appropriate. Speech within normal limits. Affect congruent, mood euthymic and irritable, Thoughts linear, logical, no signs of hallucinations or delusions. Client Response/Progress/Benefit: []Client responded well to session AEB sharing and listening attentively to others. Client provided examples of benefits of having social support, including that they can be a good distraction. Client also participated in group discussion regarding how it feels to not have social support, stating he struggles with trust. Clinician provided psychoeducation on types of support including internal and external support, with client identifying a PO and public servants as supports. Client participated in experiential activity illustrating the importance of having multiple social supports. Client provided supportive feedback and problem solving throughout group activity. Client became irritable in group activity due to having to take multiple attempts. Client appeared to benefit from increased knowledge of the benefits of social support and greater self-awareness. Will continue IOP treatment to continue increasing application of healthy coping skills and decreasing negative self-talk to improve daily functioning. Narrative Note: []
--- NOTE | 2022-01-07 11:10 | BH.SGPN.GN ---
Behaviors/Verbalizations/Mental Status: [] Client alert and oriented, casually dressed and groomed. Eye contact good. Motor activity appropriate. Speech within normal limits. Affect congruent, mood euthymic and anxious. Thoughts linear, logical, no signs of hallucinations or delusions. Client Response/Progress/Benefit: [] Client was an active participant throughout AEB contributing to discussion, providing personal examples, and taking notes. Client processed feelings from activity indicating that he was stressed and overwhelmed during it. He provided input during discussion on the types of support our supports can provide. Client was able to identify current support system and barriers that get in the way of using supports. Client stated he struggles most with emotional support due to history and cognitive distortions she has about asking for help. Connected impact this can have on his mental health. Client seemed to benefit from identifying the type of support he needs to work on improving. Client recommended to continue IOP to continue use of healthy coping, challenge distorted thoughts and improve overall functioning. Narrative Note: []
--- NOTE | 2022-01-08 09:00 | BH.SGPN.GN ---
Behaviors/Verbalizations/Mental Status: []Pt alert and oriented, casually dressed and groomed. Eye contact good. Motor activity appropriate. Speech within normal limits. Affect congruent, mood anxious. Thoughts linear, logical, no signs of hallucinations or delusions. Reviewed pt?s symptom tracker, no risk for suicidal ideation, plan, or intent as of 01/08/22 Client Response/Progress/Benefit: []Pt responded well to session, receptive to feedback. Pt reports feeling good today despite anxiety of an upcoming court date. 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 Pt stated in general he has been feeling better and has more strings of good days than bad. Pt also has been active with friends which has helped pt not isolate. Pt appeared to benefit from processing his stressor with peers. Pt will continue IOP tx to promote use of healthy emotional regulation skills, further improve daily functioning, and reduce negative thinking. Narrative Note: []
--- NOTE | 2022-01-08 10:10 | BH.SGPN.GN ---
Behaviors/Verbalizations/Mental Status: [] Client alert and oriented, neatly dressed and groomed. Eye contact good. Motor activity appropriate. Speech within normal limits. Affect congruent, mood euthymic. Thoughts linear, logical, no signs of hallucinations or delusions. Client Response/Progress/Benefit: [] Client was an active participant in group discussions. Attentive during psychoeducation on 4 types of conflict styles (Competing, Collaborating, Avoiding, and Accommodating). Worked with group to define conflict and identify how conflict is helpful and indicated that conflict is not always a bad thing. With peers identified barriers to addressing or managing conflict which included: fear of upsetting others, fear of the outcome, and feeling vulnerable. Client shared how he feels competing conflict resolution styles can impact relationships in a negative way. Benefited from group due to increase insight and awareness of benefits to conflict, conflict styles, and obstacles to managing conflict. Will continue in IOP to prevent decompensation, increase overall functioning, and increase self-esteem. Narrative Note: []
--- NOTE | 2022-01-08 11:15 | BH.SGPN.GN ---
Behaviors/Verbalizations/Mental Status: [] Client alert and oriented, neatly dressed and groomed. Eye contact good. Motor activity appropriate. Speech within normal limits. Affect congruent, mood euthymic, Thoughts linear, logical, no signs of hallucinations or delusions. Client Response/Progress/Benefit: [] Client engaged in session AEB contributing to discussion and engaging in activity. Client did well to review current conflict style and its impact on mental health. Client indicated that he switches his conflic resolution style based off who he is around and if he cares about them, but will usually be competing. Attentive and taking notes during discussion on strategies for more effectively managing conflict in personal life. Client participated in activity and did well to be collaborating. Clients given handout on fair fighting rules. Appeared to benefit from gaining strategies to help pt client better manage conflict. Will continue IOP tx to reduce negative thinking patterns, improve self-worth, and increase self-care. Narrative Note: []
--- NOTE | 2022-01-08 12:23 | PCM.BH.PN ---
Progress Note Progress Note: And history of Present Illness/Interim History: [] The patient is a 31-year-old -[place] male with a history of depression who is seen in follow-up at the [facility] behavioral health IOP program. I last saw the patient about 1 month ago. He has been consistent and engaged in the IOP program according to the staff. The patient had a recent stressor 2 weeks ago when his live-in ex-girlfriend took the children and moved out from his home. The patient states he was originally upset about this but he has adapted well to the stressor and he realizes that this has benefited him and allow him to stay sober and continue to improve. He is still working and functioning well at work. He denies any methamphetamine use whatsoever and no alcohol use. He uses marijuana on occasion. His mood is improving and he describes it overall is okay but he still has an occasional few moments a day where he feels down. He has not had any panic attacks. He is no longer feeling hopeless. He denies passive thoughts of , suicidal ideation, plan for suicide, homicidal ideation, hallucinations or delusions. He has some financial stress but he has formulated a plan for dealing with this and by taking his life 1 day at a time he feels he is doing pretty well. Current Psychiatric Medications: [] Zoloft 50 mg p.o. daily (he has been on this for 2 months now). Mental Status Examination: [] Patient is a 31-year-old thin -[place] male who appears normal for stated age and is ambulatory with a normal gait. He is casually dressed and groomed with good hygiene. He has 1 nose piercing and wears glasses. He is cooperative and pleasant during the interview and has no psychomotor agitation or retardation. Eye contact is good and speech is normal rate and rhythm and fluent with no pressure. Mood is euthymic. Affect is full and normal. Thought process is goal-directed and organized. Thought content: There is no evidence of passive thoughts of , suicidal ideation, homicidal ideation, hallucinations or delusions. The patient is hopeful for the future. Reality testing is intact. Intelligence is average. Judgment is intact. Insight is good. Impulsivity is moderate. Diagnoses: [] 1. Major depressive disorder, recurrent, severe without psychosis (resolving) 2. Generalized anxiety disorder 3. History of methamphetamine use disorder with full remission for 5 years 4. History of cocaine use disorder with full remission for 18 months. 5. Marijuana use disorder 6. Primary support and financial issues Plan: [] The patient will continue the IOP program in behavioral health at [facility] as the structure, support, education and group therapy will hopefully prevent worsening of the patient's symptoms that might require hospitalization. He felt safe during the interview and if it anytime he does not feel safe he will let us know or go to the emergency room. The risks, options, possible side effects and complications of the medication were again discussed with the patient and he understands and accepts these. The patient does not wish to have his Zoloft increased. He does agree to stay on it and feels it has really benefited him. He agrees to stay sober from all drug use and to decrease his marijuana use as much as possible. He understands the importance of remaining sober. He will continue to follow-up with his outpatient providers and I will see the patient in follow-up while he is in the IOP program.
--- NOTE | 2022-01-08 14:57 | BH.TPR ---
Treatment Plan Review Date of Admission:: 01/08/22 Date of Treatment Plan Review:: 01/08/22 Admitting Diagnoses:: 1. Major depressive disorder, recurrent, severe without psychosis (resolving). 2. Generalized anxiety disorder. 3. History of methamphetamine use disorder with full remission for 5 years. 4. History of cocaine use disorder with full remission for 18 months. 5. Marijuana use disorder Current Diagnoses:: 1. Major depressive disorder, recurrent, severe without psychosis (resolving). 2. Generalized anxiety disorder. 3. History of methamphetamine use disorder with full remission for 5 years. 4. History of cocaine use disorder with full remission for 18 months. 5. Marijuana use disorder Patient's Response to Treatment:: Consistent and engaged in IOP. Pt missed a couple sessions due to work issue and medical issues. For the first few weeks pt struggled with managing anger, irritability, and negative automatic thoughts. Pt would ruminate extensively which would lead to isolation. Over the course of the previous 2 weeks jim reports increased awareness of his thoughts and emotions, decreased impulsivity, and improved anger mgmt. Notes that his communication has improved as well. Decreased self-medication with alcohol and marijuana I've got better ways to deal with stressors than to escape with drugs or sleep. He has shown resiliency as he worked through a crisis event while in the program (ex-gf took kids out of house). Status of Current Problems and Symptoms: According to DSM-5 crosscutting scales pt has an overall 89% decrease in symptoms since admission. Per outcomes pt has a 80% reduction in the depression domain, 100% reduction in the anger domain (going from 4 to 0), and an 85% reduction in the anxiety domain. Medication compliant. Denies any SI in the past 2 weeks. Despite progress he continues to report depression, worry about the future, and significant psychosocial stressors. Problem #1 Problem Name:: Depression Status of Goals:: Obj 1- Increased awareness of cognitive distortions (catastrophizing and mind reading) and has identified semi-consistent reframing and challenging skills. While improvement noted he remains inconsistent when stressed or irritable. Obj 2- Significantly increased awareness of triggers and coping skills for depression which have improved functioning. (completed) Team Recommendations:: Continue with current plan. Pt continues to be going through significant stressors (finances, legal, and GF/kids moved out) and would benefit from continued IOP to maintain gains, prevent decompensation, and for support. Problem #2 Problem Name:: Anxiety Status of Goals:: Obj 1- completed. obj 2- Pt has increased awareness of intrusive and ruminating thoughts however needs prompts and guidance from IOP staff to manage through these. Struggles to completed this independently. Hong coping skills for managing intrusive thoughts include distraction which has been effective. Several examples since starting IOP where he ruminates, isolates, and avoids tasks which impact his functioning at home and work. Team Recommendations:: Continue with IOP level of care to maintain gains and prevent decompensation. Several upcoming stressors would could pose danger for decompensation w/o support and guidance.
--- NOTE | 2022-01-10 09:05 | BH.SGPN.GN ---
Behaviors/Verbalizations/Mental Status: [] Eye contact is good. Motor activity is appropriate. Appearance is casual. Speech is Appropriate. Mood is euthymic. Affect is full. Thoughts are linear and logical. No evidence of psychosis. Reviewed daily check in sheet and no reports of suicidal ideations or intent. Client Response/Progress/Benefit: [] Pt was an active participant in group discussion. Attentive. Provided appropriate feedback. Emotion for today is tired. Daily symptom tracker notes 09/07 for irritability. Mental health wins was utilizing skills such as opposite action throughout the week. He shared an event at work where he did not manage his anger well and group provided some feedback and anger mgmt suggestions which was helpful. Encouraged pt to focus on communication when frustrated. Pt states My patience still needs work. Also reports poor sleep which could have impacted his mood and patience. I still struggle when overwhelmed or stressed. Benefited from group support, encouragement, and feedback. Will continue in IOP to maintain safety, prevent decompensation, and increase healthy coping skills. Narrative Note: []
--- NOTE | 2022-01-10 10:15 | BH.SGPN.GN ---
Behaviors/Verbalizations/Mental Status: []Eye contact is good. Motor activity is appropriate. Appearance is casual. Speech is Appropriate. Mood is euthymic. Affect is congruent. Thoughts are linear and logical. No evidence of psychosis. Client Response/Progress/Benefit: []Pt was an active participant in group discussion and activity. Attentive during psychoeducation on the stages of change. Pt participated in interactive discussion on emotions associated with change (happy, anxious, proud, shocked, surprised, guilty, etc). Pt along with peers identified barriers that may prevent one from making change such as I don't trust people or change and being anxious about change. Group able to identify the benefits to changes such as acceptance, patience, self-awareness, and personal growth. Benefited from increased awareness of emotions related to change, the change process, and benefits/barriers to change. Will continue in IOP to promote mood stability, reinforce healthy coping skills, and reduce negative thinking patterns. Narrative Note: []
--- NOTE | 2022-01-13 10:13 | BH.COMM ---
Communication Note - Communication with Client Communication Note: No call/ No show today
--- NOTE | 2022-01-15 10:13 | BH.COMM ---
Communication Note - Communication with Client Communication Note: no call/ no show for today. This is 2nd no show for patient. Reached out however phone is not taking calls and VM is not set up. No significant distress noted last week. He had a pre-trial late last week on 01/09/22 and had mentioned in group some anxiety about going to retirement, but did not mention this on 01/10/22.
--- NOTE | 2022-01-17 09:10 | BH.SGPN.GN ---
Behaviors/Verbalizations/Mental Status: [] Eye contact is good. Motor activity is appropriate. Appearance is disheveled. Speech is Appropriate. Mood is depressed/irritable. Affect is flat. Thoughts are linear and logical. No evidence of psychosis. Reviewed daily check in sheet and no reports of suicidal ideations or intent. Client Response/Progress/Benefit: [] Pt participated when prompted. Tearful at times when sharing. Daily symptom tracker notes2/5 for depression and anxiety, and 3/5 for irritability. [employer] win was paying off all my bills ... I'm finally caught up. Shared increased depression and anger this AM due to dumb stuff from yesterday. Emotion for today is aggravated. He would not elaborate on his actions or the events that occurred yesterday except to say that he regrets his decisions. Not as engaged as usual in group discussions. Limited benefit from group as pt appears to be distracted. Plan is to meet with him individually today to further process. Will continue in IOP to maintain safety, increase healthy coping, and stablize mood. Narrative Note: []
--- NOTE | 2022-01-17 11:22 | BH.MDN_ITS ---
Multi-Disciplinary Note - Note 45-min Individual Time Started:: 10:15 Date: 01/17/22 Purpose of session/treatment goals addressed:: Reviewed current stressors and symptoms. Pt was tearful this AM during group and reported utilizing unhealthy coping skills last night. Eye Contact:: Poor Motor Activity:: Slowed Appearance:: Disheveled Speech:: Soft Mood:: Irritable, Depressed Affect:: Flat Thoughts:: Linear, Logical, No evidence of hallucinations/delusions noted Staff Interventions:: motivational interviewing, strengths perspective, goal setting Client Response:: Pt tearful stating that I made some bad decisions yesterday . Pt reports that he had missed IOP 2x earlier this week because I needed to work. Pt stated that he was behind on rent and his phone had been disconnected and needed to make up some money. He worked 7 straight day for 9 hours each day. He reports that his overall mood was good for a majority of the week and that he was proud of himself for being able to pay off his bills which he did yeste rday. Consequences of his decisions was that he burned himself out and left no room for self-care which impacted his mental health. Tearful reporting using unhealthy coping skills last evening. Allowed pt to vent his emotions. Reports feelings guilt and remorse over this actions. He was irritable and angry this AM mainly directed towards himself. We worked together to identify a concrete plan to help when he has difficulty choosing between healthy vs unhealthy coping skills. In this plan we were able to identify triggers to unhealthy coping from yesterday and addressed skills to utilize. Risks/Concerns:: Denies any SI, plan, or intent. No risks or concerns noted. Progress Toward Goals/Plan:: Regression noted due to limited self-care and ove rworking himself this week which led to decreased sleep, increased irritability, and unhealthy coping. Insight and awareness of the consequences to some decisions this week. Due to poor decisions last night he was negated all the progress that he had made in the past several weeks and feeling like a failure. We worked to reframe this and I challenged unrealistic thinking and discounting positives. Pt was able to learn from unhealthy coping and poor decisions last and make a plan to avoid these actions in the future. Was able to identify trigger to poor decisions and learn from that as well. Pt was depression, irritable, and very tired this AM and after a discussion he felt it would be best to leave program an hour earlier to go home and sleep. He is scheduled to work this weekend, however is going to reduce his hours next week. Plan is to to continue in IOP to prevent further decompensation, increase consistent use of healthy coping, and provide support. Time Stopped:: 11:05
--- NOTE | 2022-01-20 09:10 | BH.SGPN.GN ---
Behaviors/Verbalizations/Mental Status: [] Eye contact is good. Motor activity is appropriate. Appearance is casual. Speech is Appropriate. Mood is euthymic. Affect is full. Thoughts are linear and logical. No evidence of psychosis. Reviewed daily check in sheet and no reports of suicidal ideations or intent. Client Response/Progress/Benefit: [] Pt was an active participant in group discussion of cognitive behavioral therapy techniques. Attentive. Provided appropriate feedback. Daily symptom tracker notes 08/10 for irritability. Shared with the group several strategies that he has incorporated since 01/17/22 to help ensure that he prioritizes his mental health. He strayed away from his routine which was helpful last week which led to worsening symptoms and decompensation. Able to use last week to gain insight and adjust. He states that he was isolating and forcing myself to stay up. Its clear the purpose for this. Since this weekend he has been eating healtier, sleeping appropriately, and doing the things that I need to do. Increased motivation. Progress noted per pt report. Beneifted from group support, encouragement, and feedback. Will continue in IOP to prevent decompensation. Narrative Note: []
--- NOTE | 2022-01-20 10:10 | BH.SGPN.GN ---
Behaviors/Verbalizations/Mental Status: [] Client alert and oriented, casually dressed and groomed. Eye contact good. Motor activity appropriate. Speech within normal limits. Affect congruent, mood euthymic. Thoughts linear, logical, no signs of hallucinations or delusions. Client Response/Progress/Benefit: [] Client responded well to session AEB contributing to discussion, taking notes, and listening attentively to others. Group discussed the benefits of managed anger and anger as a secondary emotion. Client shared perspective on negatives from acting out in anger as potential correction time. Client completed anger iceberg worksheet, reporting outward personal signs of anger as lashing out and paranoia. Identified underlying emotions that contribute to anger including lack of knowledge. Appeared to benefit from increased knowledge of the underlying emotions that impact anger and increased self-awareness of the internal and external consequences of anger. Will continue IOP tx to prevent decompensation, as well as increase the use of healthy coping skills with expected discharge this week. Narrative Note: []
--- NOTE | 2022-01-20 11:15 | BH.SGPN.GN ---
Behaviors/Verbalizations/Mental Status: [] Client alert and oriented, neatly dressed and groomed. Eye contact good. Motor activity appropriate. Speech within normal limits. Affect congruent, mood euthymic, Thoughts linear, logical, no signs of hallucinations or delusions. Client Response/Progress/Benefit: [] Client was an engaged participant throughout group and activity AEB client providing input throughout discussion. Client contributed to the continued discussion of how people express anger as well as the consequences of anger. Client reported her consequences anger as feeling hopeless and even receiving broken bones. Group brainstormed with group healthy coping skills to help manage anger which included: mindfulness, deep breathing, exercising going outside, and practicing affirmation. Client selected thinking of the consequences before as coping skill to manage anger. Client appeared to benefit from brainstorming with the group potential strategies to manage anger in healthy ways. Recommended continued IOP tx to increase positive self-talk, further decrease anxiety, and improve overall functioning. Narrative Note: []
--- NOTE | 2022-01-22 10:15 | BH.SGPN.GN ---
Behaviors/Verbalizations/Mental Status: []Pt alert and oriented, casually dressed and groomed. Eye contact good. Motor activity appropriate. Speech within normal limits. Affect congruent, mood euthymic. Thoughts linear, logical, no signs of hallucinations or delusions. Client Response/Progress/Benefit: []Pt responded well to session AEB sharing and listening attentively to others. Pt participated in group discussion defining taking action and sharing changing his behaviors as a personal example. Group identified barriers to taking action, with examples of fear of failure and not wanting to feel uncomfortable. 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 Pt shared if they could gain control over these things pt would be thinking more before he responded. Appeared to benefit from increased self-awareness and knowledge regarding examples and barriers to taking action. Will continue IOP tx for one more day to reinforce healthy coping skills and establish aftercare. Narrative Note: []
--- NOTE | 2022-01-22 11:15 | BH.SGPN.GN ---
Behaviors/Verbalizations/Mental Status: [] Eye contact is good. Motor activity is appropriate. Appearance is casual. Speech is Appropriate. Mood is euthymic. Affect is full. Thoughts are linear and logical. No evidence of psychosis. Client Response/Progress/Benefit: [] Pt was an active participant in group discussion. Attentive during psychoeducation on the Zones of Change which included the comfort zone, learning zone, and danger zone. Pt along with peers participated in interactive discussion regarding behaviors, thoughts, and feelings associated with each zone. Participated in group activity in which they developed a plan to take action on something they wished to change. Pt chose to take action on my understanding in which he identified a SMART goal to relate more to others and myself. Identified supports that he needed as open mindset, control over emotions and thought processes. Benefited from increased self-aware of zones of change and developing an action plan. Will continue in IOP to prevent decompensation, increase healthy coping, and transition back to full-time work. Narrative Note: []
--- NOTE | 2022-01-22 15:43 | BH.MDN ---
Multi-Disciplinary Note - Note 30-min Individual Time Started:: 09:00 Date: 01/22/22 Purpose of session/treatment goals addressed:: Reviewed progress and current symptoms. Follow up after decompensation last week. Aftercare and discharge planning. Eye Contact:: Good Motor Activity:: Appropriate Appearance:: Disheveled Speech:: Appropriate Mood:: Euthymic Affect:: Full Thoughts:: Linear, Logical, No evidence of hallucinations/delusions noted Staff Interventions:: discharge planning, strengths perspective Client Response:: Pt reports that he is much better than last week. After leaving IOP on 01/17/22 he did not return to work and instead gave himself permission to catch up on sleep. He continued to utilize healthy coping throughout the weekend. He implemented coping strategies we discussed during last session and created a motivation box that he could utilize when he felt overwhelmed or had urges to utilize unhealthy coping. He has also gotten back into his self-care routine which includes self-care and healthy eating. Smiling and future-oriented. We discussed his resiliency and his ability to work through 2 crisis events during IOP highlighting that he used opposite-action and skills rather than avoidance and isolation as he had done in the past. It would have been bad if I had done that recently. Able to see progress. Risks/Concerns:: No risks or concerns noted. Progress Toward Goals/Plan:: Progress noted. Followed through with concrete plan we developed last week to manage through overwhelming emotions and poor decisions. Functioning well this past weekend and this week. Future-oriented. Despite setback has shown resiliency and motivation to use skills rather the quit, avoid, or isolate. Plan is to discharge tomorrow. He has counseling set up for later this week. 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 Time Stopped:: 09:30
--- NOTE | 2022-01-23 09:00 | BH.SGPN.GN ---
Behaviors/Verbalizations/Mental Status: [] Eye contact is good. Motor activity is appropriate. Appearance is casual. Speech is Appropriate. Mood is euthymic. Affect is full. Thoughts are linear and logical. No evidence of psychosis. Reviewed daily check in sheet and no reports of suicidal ideations or intent. Client Response/Progress/Benefit: [] Pt was an active participant in group discussion. Attentive. Provided appropriate feedback. Emotion for today is excited. Daily symptom tracker notes no significant distress. Shared with the group that today is his last day in the IOP program. He shared his progress with the group and believes that he is in a better space than he was prior to entering [facility]. He reports that the psychoeducation group that resonated the most with him dealt with cognitive distortions and how important this group was to him. Mental health wins include setting up boundaries and making healthy decisions which he elaborated on for the group. Progress noted per pt report. Plan is to discharge today from [facility]. Narrative Note: []
--- NOTE | 2022-01-23 10:10 | BH.SGPN.GN ---
Behaviors/Verbalizations/Mental Status: []Pt alert and oriented, casually dressed and grooming appears tended to. Eye contact good. Motor activity appropriate. Speech within normal limits. Affect congruent, mood euthymic. Thoughts linear, logical, no signs of hallucinations or delusions. Client Response/Progress/Benefit: []Pt engaged throughout AEB taking notes, listening attentively, and providing input throughout. Attentive during psychoeducation and discussed the importance of goal-setting with the group. Group identified potential benefits of having goals to include: they motivate, increase self-confidence, provide a sense of accomplishment, help improve relationships, and provide a sense of purpose. Group also worked together to identify barriers to goal-setting which included; all or nothing thinking, self-doubt, toxic environment, lack of motivation, and unrealistic expectations. Pt identified personal barriers to include self-doubt, lack of motivation, and breaking unhealthy habits. Benefited from increased awareness of benefits and barriers to goal-setting. Pt will discharge from IOP tx today as pt has accomplished his tx goals and no longer meets criteria for IOP level of care. Narrative Note: []
--- NOTE | 2022-01-23 11:10 | BH.SGPN.GN ---
Behaviors/Verbalizations/Mental Status: []Client alert and oriented, casually dressed and groomed. Eye contact good. Motor activity appropriate. Speech within normal limits. Affect congruent, mood euthymic. Thoughts linear, logical, no signs of hallucinations or delusions. Client Response/Progress/Benefit: []Pt was an active participant in group discussions and activities. Engaged in activity. Pt identified a SMART goal for the next week is to: add 3 things to his daily after work routine. Pt reported this would benefit him by keeping him busy and decreasing how much time he spends in bed. Identified working too much, procrastination, taking a nap, negative thoughts and friends as potential barriers to completing this goal. Pt able to identify several solutions that can help overcome identified barriers. Benefited from group by being able to utilize SMART educate to create a goal. Pt has made significant treatment progress since starting IOP and will discharge today.
--- NOTE | 2022-01-23 13:14 | BH.DS ---
Discharge Summary - Demographics Date of Admission:: 12/09/21 Discharge Date: 01/23/22 Presenting Problems at Admission:: Pt is a 31 year old male with hx of MDD. No previous psychiatric admissions. Presented to [facility] ER on 11/07/21 with suicidal ideations. Mental health crisis assessment was completed and he was referred to [facility] level of care. Pt reports worsening depression for the past several months. On 11/07/21 he met with his individual therapist at [facility] and she referred him to PCP for medication mgmt. PCP had concerns due to SI and sent him to the ER for evaluation. In the ER pt reported If I were I could not hate myself. He reports active suicidal thoughts with vivid images of how he would kill himself. Long-standing depression with exacerbation due to finances and conflict with live=in GF. Mood has improve since 11/07/21 and currently denies any active suicidal ideations, plan, or intent. No hx of attempts. Endorses poor sleep, poor appetite, low motivation, hopelessness, crying spells, and anhedonia. Panic attacks 2-3 times weekly my brain won't quiet down. Ruminations. Daily marijuana use to help with anxiety and sleep. Denies HI or psychosis. Adopted. Currently on probation and has pending legal charges for assault. Hx of meth with last use in 2017. Discharge Diagnoses:: 1. Major depressive disorder, recurrent, severe without psychosis (resolving). 2. Generalized anxiety disorder. 3. History of methamphetamine use disorder with full remission for 5 years Reason for Discharge:: No longer meets criteria for [facility] level of care. - Treatment Progress During Treatment & Response: Pt showed significant progress during [facility] admission. No significant issues with attendance. Was engaged and motivated during programing. According to outcome measurements pt had a 74% reduction in overall symptoms since admission on 12/09/21. Outcomes showed a significant reduction in the depression domain (100%) and anxiety domain (71%). No suicidal ideations reported in the past 2 weeks. Also notes a 100% reduction in anger since admission according to the DSM-5 cross-cutting scales. Pt self-reports improved communication with support, decreased depression, decreased anxiety, and decreased anger. 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 In regards to treatment plan goals pt is able to identify several cognitive distortions which impact him (absolute thinking, mind-reading), triggers to depression/distortions, and CBT strategies to address them. Pt is able to identify several calming strategies for anxiety and anger mgmt as well as intrusive thoughts which prolong these emotions. Increased anger mgmt skills per pt which include awareness of physiological signs of anger, anger buttons, and strategies to address emotion rather than isolate, avoid, and ruminate. Issues Still to be Addressed:: Pt still struggles with utilizing unhealthy coping strategies when both depression and when happy (way to celebrate). Would benefit from continued counseling to maintain gains. Discharge Recommendations/Instructions:: Pt has appointment with outpatient therapist Dee Dee Camp at [facility] this afternoon. Pt was given referral information for inspector assembly at [facility] and encouraged to make appointment. Discharge Handout: Complete Discharge Handout with client on aftercare options and continuity of care.
== END 2022-01-23 12:12 | disposition home or self-care (01) ==
LOC: BHIOP 07:25
PROVIDERS: PCP Family Medicine; Referring Provider Psychiatry & Neurology Psychiatry; Visit Provider Psychiatry & Neurology Psychiatry
DX: F33.2 Major depressive disorder, recurrent severe without psychotic features (principal); F41.1 Generalized anxiety disorder; F12.99 Cannabis use, unspecified with unspecified cannabis-induced disorder; Z79.899 Other long term (current) drug therapy
CPT/HCPCS: S9480; 90832; 90834; 90837; 90853